=== PATIENT | female | born 1965 | race Two or more races ===

== ENCOUNTER 2020-05-20 12:05 | Outpatient (CLI) | payer OTHER | END 2020-05-20 12:16 | disposition home or self-care (01) | LOC: RAD 12:05 | DX: M51.35 Other intervertebral disc degeneration, thoracolumbar region (principal); M41.34 Thoracogenic scoliosis, thoracic region; M50.30 Other cervical disc degeneration, unspecified cervical region; M51.34 Other intervertebral disc degeneration, thoracic region; M51.36 Other intervertebral disc degeneration, lumbar region ==